=== PATIENT | male | born 1990 | race Caucasian/White ===

== ENCOUNTER 2020-04-18 19:29 | Emergency (ER) | payer OTHER, SELFPAY ==
[2020-04-18 19:31] VITALS: BP 131/79; PULSE 65; RESP 18; TEMP 36; O2SAT 98; BMI 36.4
--- NOTE | 2020-04-18 19:41 | ED.VIS.GEN ---
History of Present Illness Chief Complaint: Laceration Informant: Patient Onset: Today Current Severity: Mild Maximum Severity: Mild Narrative: Patient presents with laceration to the right index finger. He was sharpening his blade on his chainsaw and the file slipped and he cut his finger on 1 of the teeth from the chainsaw blade. He is right-hand dominant. He is unsure of his last tetanus update. Past Medical History - Allergies and Home Meds Allergies/Adverse Reactions: Allergies codeine Allergy (Verified 04/18/20 19:30) Hives Primary Care Physician: NOT,DEFINED [NON-STAFF] - Past Medical History: None Lives: With Family Smoking Status: Never smoker Review of Systems General: Denies: Chills, Fever Eyes: Denies: Visual changes - bilaterally ENT: Denies: Bilateral ear pain Cardiovascular: Denies: Chest pain Respiratory: Denies: Dyspnea, Cough Musculoskeletal: Reports: Extremity Pain Skin: Reports: Wounds Hematologic: Denies: Easy bruising, Easy bleeding Allergy: Denies: Uticaria Physical Exam Vital Signs/Narrative: Vital Signs Temp Pulse Resp BP Pulse Ox 04/18/20 19:31 96.8 F L 65 18 131/79 H 98 Inital Vital Signs reviewed: Yes General: Well nourished, Well developed Head: Normocephalic ENT: Moist mucous membranes Neck: Supple Cardiovascular: Regular rate, Regular rhythm Respiratory: No distress, CTA bilaterally Extremities: - - 2.5 cm laceration on the extensor surface of the right index finger that crosses the PIP joint. Good cap refill and sensation distally. No bony tenderness. Neurological: Alert, Oriented x3, Normal Strength, Normal Sensation Psychological: Normal affect Diagnostic/Tx/Re-eval - Medical Decision Making Tetanus update is provided. 3 cc 1% lidocaine are used in a digital block. Wound is cleansed and irrigated. 6 simple interval sutures of 5-0 Ethilon are placed with good approximation. Nursing will apply tube gauze dressing. Patient is have sutures removed in 7 to 10 days. Procedures - Lacerations No standard instances Length: 0.98 in Depth: Sub Q Shape: Linear Prep: [place] Laceration repair: Digital block Number of Sutures/Jose: 6 Suture Information: Ethilon, Simple, 5-0 ED Disposition - Plan for ED Patient: Disposition: Home or Assisted Living Diagnosis: Finger laceration Instructions: ED Laceration Hand Additional Instructions: Follow-up with your doctor in 7-10 days for removal of your stitches.
[2020-04-18] MEDS: Diphth,Pertuss(Acell),Tet Vac 0.5 ML Vial IM (19:45)
== END 2020-04-18 20:26 | disposition home or self-care (01) ==
PROVIDERS: Emergency Provider Emergency Medicine
DX: S61.210A Laceration without foreign body of right index finger without damage to nail, initial encounter (principal); W29.3XXA Contact with powered garden and outdoor hand tools and machinery, initial encounter; Y93.9 Activity, unspecified; Y92.9 Unspecified place or not applicable
CPT/HCPCS: 12001; 90471; 90715; 99283